=== PATIENT | female | born 1970 | race Hispanic/Latino ===

== ENCOUNTER 2023-11-29 09:21 | Emergency (ER) | payer OTHER ==
[~2023-11-29] VITALS: Ht 149.9 cm; Wt 68.0 kg
[~2023-11-29 09:21] MED LIST: AMOX1TAB16 PO
[2023-11-29 09:30] VITALS: BP 118/89; PULSE 69; RESP 16; O2SAT 100
[2023-11-29 09:59] LABS: APPEARANCE,URINE CLEAR (CLEAR); BILIRUBIN,URINE NEGATIVE (NEGATIVE); COLOR,URINE LIGHT-YELLOW (YELLOW); GLUCOSE, URINE (UA) NEGATIVE (NEGATIVE); KETONES,URINE NEGATIVE (NEGATIVE); LEUKOCYTE ESTERASE ,URINE NEGATIVE Leu/uL (NEGATIVE); NITRATE,URINE NEGATIVE (NEGATIVE); OCCULT BLOOD,URINE MODERATE (NEGATIVE); PH,URINE 6.5 (5.0-8.0); PROTEIN,URINE 30 mg/dL (NEGATIVE); UROBILINOGEN,URINE 0.2 mg/dL (0.2-1.0)
[2023-11-29 10:06] LABS: ADD UA MICROSCOPIC YES
[2023-11-29] MEDS: DIAZEPAM 5 MG/ML 2 ML SYG IM ONE (10:20)
[2023-11-29] MEDS: KETOROLAC 60 MG VIAL (30MG/ML) IM ONE (10:21)
[2023-11-29 10:28] LABS: MUCUS,URINE RARE LPF (None Seen); SQUAMOUS EPITHELIAL CELL,UR FEW /HPF (0-2)
[2023-11-29] MEDS ORDERED: NAPR-1196 PO (10:59)
[2023-11-29] MEDS ORDERED: CYCL5TAB PO (10:59)
== END 2023-11-29 11:34 | disposition home or self-care (01) ==
LOC: EDH 09:21
DX: M54.50 Low back pain, unspecified (principal); I10 Essential (primary) hypertension; E78.00 Pure hypercholesterolemia, unspecified; Z87.440 Personal history of urinary (tract) infections
CPT/HCPCS: 99285; 74176; 81001; 96372 ×2; J3360; J1885